=== PATIENT | male | born 1940 | race Caucasian/White ===

== ENCOUNTER 2016-11-29 11:08 | Emergency (ER) | payer OTHER, BC ==
[~2016-11-29] VITALS: Ht 175.3 cm; Wt 74.0 kg
[2016-11-29 11:15] VITALS: TEMP 36.6; Ht 175.3 cm; Wt 74.0 kg
[2016-11-29] MEDS ORDERED: ONDANSETRON INJ 2 MG/ML 2 ML VIAL IV STA (11:29)
[2016-11-29] MEDS ORDERED: HYDROmorphone INJ 1 MG/ML SYR IV STA (11:29)
--- NOTE | 2016-11-29 11:44 | EMERGENCY ROOM VISIT NOTE ---
History Report prepared by Keyla: Michele urena Under the Supervision of: Dr. Guero Cabrera M.D. First contact with patient: 11:23 Chief Complaint: GROIN PAIN Stated Complaint: PAIN RT GROIN/HIP AREA History of Present Illness The patient is a 76 year old male who presents to the Emergency Room with complaints of intermittent right sided groin pain that started six weeks ago. He rates his pain as a 3/10 in severity and reports his pain radiates into his leg. He reports that the pain has been constant since 0000 this morning. The patient states that the pain is worsened with movement. The patient denies any prostate problems, constipation, dysuria, abnormal eating, vomiting Source of History: patient Onset: six weeks ago Position: other (right groin) Symptom Intensity: Timing: intermittent Modifying Factors (Worsening): movement Associated Symptoms: No vomiting, No urinary symptoms Review of Systems See HPI for pertinent positives & negatives. A total of 10 systems reviewed and were otherwise negative. Past Medical & Surgical Hip dislocation ten years ago Social History Smoking Status: Former Smoker Current/Historical Medications Scheduled Aspirin (Aspirin Ec), 81 MG PO DAILY Atorvastatin (Lipitor), Unknown Dose PO DAILY Clopidogrel (Plavix), 75 MG PO DAILY Docusate Sodium (Colace), 1 CAP PO BID Ferrous Sulfate-Vitamin C-Foli (Folitab 500), 1 TAB PO DAILY Omeprazole (Prilosec), 20 MG PO DAILY Pramipexole Dihydrochloride (Pramipexole Dihydrochlori), 2 TAB PO HS Sennosides (Senokot), 8.6 MG PO HS Sertraline (Zoloft), 100 MG PO DAILY Scheduled PRN Oxycodone/Acetaminophen 5MG/325MG (Percocet 5MG/325MG), 1 TABLET PO Q6H PRN for Pain Oxycodone/Acetaminophen 5MG/325MG (Percocet 5MG/325MG), 1-2 TAB PO Q4H PRN for Pain Tramadol (Ultram), 50 MG PO Q4H PRN for Pain Allergies Coded Allergies: No Known Allergies (Unverified , 11/29/16) Physical Exam Vital Signs Date Time Temp Pulse Resp B/P (MAP) Pulse Ox O2 Delivery O2 Flow Rate FiO2 11/29/16 12:05 86 16 144/94 95 Room Air 11/29/16 11:44 80 11/29/16 11:15 36.6 84 18 137/79 96 Room Air Physical Exam GENERAL: Patient is a healthy-appearing well-nourished 76 year old male. HEAD: Normocephalic atraumatic EYES: Ocular movements intact pupils equal and react to light OROPHARYNX mucous membranes are moist no exudates present no erythema or edema present NECK: Supple no nuchal rigidity CHEST: Good equal expansion LUNGS: Clear and equal to auscultation CARDIAC: Normal S1 and S2 ABDOMEN: Soft nontender no guarding GENITAL: Exquisite tenderness to right inguinal area. BACK: No CVA tenderness EXTREMITIES: No pain upon palpation normal muscle strength in all groups no clubbing cyanosis or edema NEURO: Patient is following commands and answering questions appropriately. Alert and oriented x3 Cranial Nerves 2-12 grossly intact Medical Decision & Procedures ER Provider Diagnostic Interpretation: CT OF THE ABDOMEN AND PELVIS WITH CONTRAST CLINICAL HISTORY: Right groin/hip pain. COMPARISON STUDY: None. TECHNIQUE: Following IV administration of 95 mL of Optiray-320, axial images of the abdomen and pelvis were obtained from the lung bases to the proximal femurs. Images were reviewed in the axial, sagittal, and coronal planes. IV contrast was administered without complication. A dose lowering technique was utilized adhering to the principles of ALARA. CT DOSE: 357.99 mGy.cm FINDINGS: Visualized portions of the lower chest demonstrate several pleural lucencies suggestive of honeycombing. This represents interstitial lung disease. Pacer leads are noted. No pneumatosis, free air or portal venous gas is present. A 1.2 cm left renal cyst is noted. A 3 mm calcification within the left kidney could reflect a vascular calcification or nonobstructing calculus. There are no ureteral calculi. There is no evidence for a bowel obstruction. There is extensive colonic diverticulosis without evidence of acute diverticulitis. The appendix is not visualized. There is no bowel obstruction. Postoperative findings within the lumbar spine are suboptimally assessed by CT. There is a moderate size right hip joint effusion. There is mild to moderate osteophytosis of the right hip. No suspicious osseous lesions are identified. There is no lymphadenopathy. Prostate is moderately enlarged. There is extensive atherosclerotic plaque of the abdominal aorta which is ectatic but not aneurysmally dilated. IMPRESSION: 1. No acute process within the abdomen or pelvis. 2. Extensive colonic diverticulosis without evidence of acute diverticulitis. 3. Moderate size right hip joint effusion. Mild to moderate osteoarthritis of right hip. Electronically signed by: Linus Brock M.D. 11/29/2016 1:07 PM Dictated Date/Time: 11/29/2016 12:56 PM Laboratory Results 11/29/16 12:05 Red Blood Count 4.33, Mean Corpuscular Volume 99.8, Mean Corpuscular Hemoglobin 33.0, Mean Corpuscular Hemoglobin Concent 33.1, Mean Platelet Volume 9.1, Neutrophils (%) (Auto) 67.6, Lymphocytes (%) (Auto) 14.2, Monocytes (%) (Auto) 17.2, Eosinophils (%) (Auto) 0.6, Basophils (%) (Auto) 0.1, Neutrophils # (Auto ) 8.61, Lymphocytes # (Auto) 1.81, Monocytes # (Auto) 2.19, Eosinophils # (Auto ) 0.08, Basophils # (Auto) 0.01 11/29/16 12:05 Test 11/29/16 12:00 11/29/16 12:05 11/29/16 12:11 Urine Color YELLOW Urine Appearance CLEAR (CLEAR) Urine pH 6.5 (4.5-7.5) Urine Specific [place] 1.021 (1.000-1.030) Urine Protein NEG (NEG) Urine Glucose (UA) NEG (NEG) Urine Ketones NEG (NEG) Urine Occult Blood NEG (NEG) Urine Nitrite NEG (NEG) Urine Bilirubin NEG (NEG) Urine Urobilinogen POS (NEG) Urine Leukocyte Esterase NEG (NEG) White Blood Count 12.74 K/uL (4.8-10.8) Red Blood Count 4.33 M/uL (4.7-6.1) Hemoglobin 14.3 g/dL (14.0-18.0) Hematocrit 43.2 % (42-52) Mean Corpuscular Volume 99.8 fL (80-100) Mean Corpuscular Hemoglobin 33.0 pg (25-34) Mean Corpuscular Hemoglobin Concent 33.1 g/dl (32-36) Platelet Count 216 K/uL (130-400) Mean Platelet Volume 9.1 fL (7.4-10.4) Neutrophils (%) (Auto) 67.6 % Lymphocytes (%) (Auto) 14.2 % Monocytes (%) (Auto) 17.2 % Eosinophils (%) (Auto) 0.6 % Basophils (%) (Auto) 0.1 % Neutrophils # (Auto) 8.61 K/uL (1.4-6.5) Lymphocytes # (Auto) 1.81 K/uL (1.2-3.4) Monocytes # (Auto) 2.19 K/uL (0.11-0.59) Eosinophils # (Auto) 0.08 K/uL (0-0.5) Basophils # (Auto) 0.01 K/uL (0-0.2) RDW Standard Deviation 49.5 fL (36.4-46.3) RDW Coefficient of Variation 13.5 % (11.5-14.5) Immature Granulocyte % (Auto) 0.3 % Immature Granulocyte # (Auto) 0.04 K/uL (0.00-0.02) Est Creatinine Clear Calc Drug Dose 73.7 ml/min Estimated GFR () 97.9 Estimated GFR (Non- 84.5 BUN/Creatinine Ratio 17.0 (10-20) Calcium Level 9.1 mg/dl (8.5-10.1) Total Bilirubin 0.9 mg/dl (0.2-1) Direct Bilirubin 0.2 mg/dl (0-0.2) Aspartate Amino Transf (AST/SGOT) 18 U/L (15-37) Alanine Aminotransferase (ALT/SGPT) 23 U/L (12-78) Alkaline Phosphatase 112 U/L (45-117) Total Protein 7.3 gm/dl (6.4-8.2) Albumin 3.9 gm/dl (3.4-5.0) Lipase 118 U/L (73-393) Bedside Hemoglobin 15.0 g/dl (14.0-18.0) Bedside Hematocrit 44 % (42-52) Bedside Sodium 136 mEq/L (135-144) Bedside Potassium 4.0 mEq/L (3.3-5.0) Bedside Chloride 96 mEq/L (101-112) Bedside Total CO2 27 mEq/l (24-31) Anion Gap 17.0 mmol/L (16-25) Bedside Blood Urea Nitrogen 14 mg/dl (7-18) Bedside Creatinine 0.7 mg/dl (0.6-1.3) Bedside Glucose (other) 92 mg/dl (70-99) Bedside Ionized Calcium (Leta) 1.13 mmol/l (1.12-1.32) Medications Administered Medications (Trade) Dose Ordered Sig/Dave Route Start Time Stop Time Status Last Admin Dose Admin Hydromorphone HCl (Dilaudid Inj) 1 mg NOW STAT IV 11/29/16 11:29 11/29/16 11:31 DC 11/29/16 12:00 1 MG Ondansetron HCl (Zofran Inj) 4 mg NOW STAT IV 11/29/16 11:29 11/29/16 11:31 DC 11/29/16 12:00 4 MG ED Course 1125: Past medical records reviewed. The patient was evaluated in room C01B. A complete history and physical examination was performed. Medical Decision The differential diagnosis includes but is not limited to: etiologies such as appendicitis, diverticulitis, PUD, biliary pathology, UTI, pancreatitis, obstruction, mesenteric ischemia, aortic pathology, infections, inflammatory bowel disease, renal colic, as well as others were entertained. This is a 76-year-old male that presents emergency department complaining of right inguinal pain when standing or walking. He does not appear to have a hernia on examination. Based on the patient's complaint he was sent for CAT scan of the abdomen pelvis. This was concerning for a right hip effusion along with a large amount of arthritis and hip. The patient has a history of a hip dislocation approximate 10 years ago and I believe that this is the source of his arthritis and current problems. I strongly recommended to the patient that he see an orthopedist in the area however he is continuing on his trip to [place] and does not wish to do this. I strongly recommended crutches as well as pain medication and I stressed the fact that this will not get better until he sees an orthopedist. I recommended IV Profen 600 mg every 6 hours as well as Percocet. An IV was established in the emergency department, the patient was given 1 mg of Dilaudid, 4 Zofran. Repeat examination revealed much improvement the patient's symptoms. Medication Reconcilliation Current Medication List: was personally reviewed by me Blood Pressure Screening Patient's blood pressure: Elevated blood pressure Blood pressure disposition: Referred to PCP Impression Primary Impression: Hip pain, right Scribe Attestation The scribe's documentation has been prepared under my direction and personally reviewed by me in its entirety. I confirm that the note above accurately reflects all work, treatment, procedures, and medical decision making performed by me. Departure Information Dispostion Home / Self-Care Prescriptions Docusate Sodium (COLACE) 100 Mg Cap 1 CAP PO BID for 10 Days, #20 CAP Prov: Guero Cabrera MD 11/29/16 Sennosides (SENOKOT) 8.6 Mg Tab 8.6 MG PO HS for 10 Days, #10 TAB Prov: Guero Cabrera MD 11/29/16 Oxycodone/Acetaminophen 5MG/325MG (PERCOCET 5MG/325MG) Tab 1-2 TAB PO Q4H Y for Pain, #14 TAB Prov: Guero Cabrera MD 11/29/16 Referrals No Doctor, Assigned (PCP) Patient Instructions My [facility]
[2016-11-29] MEDS ORDERED: OPTIRAY 320 IV PRN (11:45)
[2016-11-29 12:18] LABS: BASO % 0.1 %; BASO ABS # 0.01 K/uL (0-0.2); COMPLETE YES; EOS % 0.6 %; HEMATOCRIT 43.2 % (42-52); IG% 0.3 %; LYMPH % 14.2 %; LYMPH ABS # 1.81 K/uL (1.2-3.4); MEAN CELL VOLUME 99.8 fL (80-100); MEAN CORPUSCULAR HGB CONC 33.1 g/dl (32-36); MEAN PLATELET VOLUME 9.1 fL (7.4-10.4); MONO % 17.2 %; NEUT % 67.6 %; PLATELET COUNT 216 K/uL (130-400); RED BLOOD COUNT 4.33 M/uL (4.7-6.1); WHITE BLOOD COUNT 12.74 K/uL (4.8-10.8)
[2016-11-29 12:25] LABS: ISTAT CREATININE 0.7 mg/dl (0.6-1.3); ISTAT IONIZED CALCIUM 1.13 mmol/l (1.12-1.32)
[2016-11-29 12:28] LABS: URINE APPEARANCE CLEAR (CLEAR); URINE BILIRUBIN NEG (NEG); URINE COLOR YELLOW; URINE NITRITE NEG (NEG); URINE PH 6.5 (4.5-7.5); URINE SPECIFIC GRAVITY 1.021 (1.000-1.030); UROBILINOGEN POS (NEG)
[2016-11-29] MEDS ORDERED: FERR1TAB PO (12:30)
[2016-11-29] MEDS ORDERED: ATOR-22 PO (12:30)
[2016-11-29] MEDS ORDERED: SERT-234 PO (12:30)
[2016-11-29] MEDS ORDERED: PRAM0.256 PO (12:30)
[2016-11-29] MEDS ORDERED: CLOP1TAB15 PO (12:30)
[2016-11-29] MEDS ORDERED: PRLSR20 PO (12:30)
[2016-11-29] MEDS ORDERED: ASPI81TA28 PO (12:30)
[2016-11-29] MEDS ORDERED: ASCO500T16 PO (12:30)
[2016-11-29 12:32] LABS: MANUAL MICROSCOPIC REQUIRED? NO; REVIEW REQ? NO
[2016-11-29] MEDS ORDERED: TRAM-10 PO (12:32)
[2016-11-29] MEDS ORDERED: OXYC-57 PO ×2 (12:32→13:36)
[2016-11-29 12:35] LABS: CALCIUM 9.1 mg/dl (8.5-10.1); CREATININE 0.84 mg/dl (0.60-1.40)
--- NOTE | 2016-11-29 13:09 | DIAGNOSTIC IMAGING REPORT ---
CT OF THE ABDOMEN AND PELVIS WITH CONTRAST CLINICAL HISTORY: Right groin/hip pain. COMPARISON STUDY: None. TECHNIQUE: Following IV administration of 95 mL of Optiray-320, axial images of the abdomen and pelvis were obtained from the lung bases to the proximal femurs. Images were reviewed in the axial, sagittal, and coronal planes. IV contrast was administered without complication. A dose lowering technique was utilized adhering to the principles of ALARA. CT DOSE: 357.99 mGy.cm FINDINGS: Visualized portions of the lower chest demonstrate several pleural lucencies suggestive of honeycombing. This represents interstitial lung disease. Pacer leads are noted. No pneumatosis, free air or portal venous gas is present. A 1.2 cm left renal cyst is noted. A 3 mm calcification within the left kidney could reflect a vascular calcification or nonobstructing calculus. There are no ureteral calculi. There is no evidence for a bowel obstruction. There is extensive colonic diverticulosis without evidence of acute diverticulitis. The appendix is not visualized. There is no bowel obstruction. Postoperative findings within the lumbar spine are suboptimally assessed by CT. There is a moderate size right hip joint effusion. There is mild to moderate osteophytosis of the right hip. No suspicious osseous lesions are identified. There is no lymphadenopathy. Prostate is moderately enlarged. There is extensive atherosclerotic plaque of the abdominal aorta which is ectatic but not aneurysmally dilated. IMPRESSION: 1. No acute process within the abdomen or pelvis. 2. Extensive colonic diverticulosis without evidence of acute diverticulitis. 3. Moderate size right hip joint effusion. Mild to moderate osteoarthritis of right hip. Electronically signed by: Linus Brock M.D. 11/29/2016 1:07 PM Dictated Date/Time: 11/29/2016 12:56 PM
[2016-11-29] MEDS ORDERED: DOCU-94 PO (13:38)
[2016-11-29] MEDS ORDERED: SENN1TAB77 PO (13:38)
[2016-11-29] MEDS ORDERED: PERCOCET HOME PACK PO ONE (13:45)
[2016-11-29 14:07] VITALS: BP 133/67; PULSE 93; O2SAT 92
== END 2016-11-29 14:07 | disposition home or self-care (01) ==
LOC: C.EDB 11:15 → C.EDC 14:07
DX: M25.551 Pain in right hip (principal); Z87.891 Personal history of nicotine dependence; Z79.82 Long term (current) use of aspirin